=== PATIENT | male | born 1990 | race African-American/Black ===

== ENCOUNTER 2019-09-12 11:54 | Emergency (ER) | payer OTHER ==
[2019-09-12 12:49] LABS: ABS Basophils 0.1 10^3/ul (0-0.2); ABS Lymphocytes 2.3 10^3/ul (1.0-4.8); ABS Monocytes 1.5 10^3/ul (0-0.8); ABS Neutrophils 8.3 10^3/ul (1.5-7.7); Eosinophil % 0.3 %; Hematocrit 52 % (42-52); Hemoglobin 17.7 g/dL (14.0-18.0); Lymphocyte % 18.9 %; Mean Corpuscular HGB Conc 34 g/dL (31-36); Mean Corpuscular Hemoglobin 28 pg (27-31); Mean Corpuscular Volume 84 fL (80-94); Mean Platelet Volume 10.2 fL (7.4-10.4); Nucleated Red Blood Cells % 0.2; Platelet Count 125 10^3/uL (150-450); Red Blood Count 6.21 10^6 /uL (4.18-5.48); Red Cell Distribution Width 13 % (10-15); White Blood Count 12.3 10^3/uL (3.5-10.8)
--- NOTE | 2019-09-12 12:55 | ED ---
Complex/Multi-Sys Presentation - HPI Summary HPI Summary: Patient is a 29 y/o M presenting to [facility] with chief complaint of left-sided abdominal pain. Patient believed that he had the flu as he was experiencing fevers, diarrhea, productive cough, fatigue and chills. He states that his diarrhea has resolved but notes persistence of abdominal pain. Abdominal pain has been present for the past four days. Intermittent nausea is noted as well. Testicular pain is denied. He reports no similar prior episodes of Sx. Patient states that he was evaluated at [facility] and was diagnosed with PNA. However, no CXR was done and the patient was not prescribed antibiotics. Patient is a current smoker of 12 years. No PMHx of COPD but FMHx of COPD is noted. Patient denies alcohol and substance usage. Home medications and allergies are reviewed. - History Of Current Complaint Chief Complaint: EDAbdPain Time Seen by Provider: 09/12/19 12:33 Hx Obtained From: Patient Onset/Duration: Lasting Days, Still Present, Resolved - diarrhea Timing: Intermittent, Lasting: - nausea, Days - abd pain Severity Currently: Severe - 02/18 Location: Pain At: - abdomen, left Associated Signs And Symptoms: Positive: Cough, Nausea, Diarrhea, Abdominal Pain , Fever, Other - positive - fatigue, chills; negative - testicular pain - Allergies/Home Medications Allergies/Adverse Reactions: Allergies Allergy/AdvReac Type Severity Reaction Status Date / Time Penicillins Allergy Unknown Verified 09/12/19 12:35 Reaction Details PMH/Surg Hx/FS Hx/Imm Hx Respiratory History: Reports: Hx Asthma Denies: Hx Chronic Obstructive Pulmonary Disease (COPD) Sensory History: Denies: Hx Legally Blind, Hx Deafness Opthamlomology History: Denies: Hx Legally Blind EENT History: Denies: Hx Deafness Infectious Disease History: No Infectious Disease History: Denies: Traveled Outside the [place] in Last 30 Days - Family History Known Family History: Positive: Respiratory Disease - COPD Negative: Cardiac Disease, Hypertension, Diabetes - Social History Alcohol Use: None Substance Use Type: Reports: None Smoking Status (MU): Light Every Day Tobacco Smoker Review of Systems Positive: Fever - reported , Chills, Fatigue Positive: Cough Positive: Abdominal Pain, Diarrhea - since resolved , Nausea Negative: pain - testicular All Other Systems Reviewed And Are Negative: Yes Physical Exam - Summary Physical Exam Summary: VITAL SIGNS: Reviewed. GENERAL: Patient is a well-developed and nourished male who is lying comfortable in the stretcher. Patient is not in any acute respiratory distress. HEAD AND FACE: No signs of trauma. No ecchymosis, hematomas or skull depressions. No sinus tenderness. EYES: PERRLA, EOMI x 2, No injected conjunctiva, no nystagmus. EARS: Hearing grossly intact. Ear canals and tympanic membranes are within normal limits. MOUTH: Oropharynx within normal limits. NECK: Supple, trachea is midline, no adenopathy, no JVD, no carotid bruit, no c- spine tenderness, neck with full ROM. CHEST: Symmetric, no tenderness at palpation. LUNGS: Crackles bilaterally are noted. There is a slight wheeze. CVS: Regular rate and rhythm, S1 and S2 present, no murmurs or gallops appreciated. ABDOMEN: Soft, LLQ tenderness. No signs of distention. No rebound, no guarding, and no masses palpated. Bowel sounds are normal. No hernia appreciated. EXTREMITIES: FROM in all major joints, no edema, no cyanosis or clubbing. NEURO: Alert and oriented x 3. No acute neurological deficits. Speech is normal and follows commands. SKIN: Dry and warm. Triage Information Reviewed: Yes Vital Signs On Initial Exam: Initial Vitals Temp Pulse Resp BP Pulse Ox 99.3 F 96 16 140/93 94 09/12/19 11:54 09/12/19 11:54 09/12/19 11:54 09/12/19 11:54 09/12/19 11:54 Vital Signs Reviewed: Yes Procedures - Sedation Patient Received Moderate/Deep Sedation with Procedure: No Diagnostics - Vital Signs Vital Signs Temp Pulse Resp BP Pulse Ox 09/12/19 11:54 99.3 F 96 16 140/93 94 - Laboratory Result Diagrams: 09/12/19 12:34 09/12/19 12:34 Lab Statement: Any lab studies that have been ordered have been reviewed, and results considered in the medical decision making process. - Radiology cxr Radiology Interpretation Completed By: Radiologist Summary of Radiographic Findings: IMPRESSION: Right lower lobe infiltrate versus atelectasis. THIS REPORT WAS REVIEWED BY ED PHYSICIAN. CXR Radiology Interpretation Completed By: Radiologist Summary of Radiographic Findings: IMPRESSION: Right lower lobe infiltrate versus atelectasis. THIS REPORT WAS REVIEWED BY ED PHYSICIAN. ABDOMEN X-RAY Radiology Interpretation Completed By: Radiologist Summary of Radiographic Findings: IMPRESSION: Nonobstructive bowel gas pattern. THIS REPORT WAS REVIEWED BY ED PHYSICIAN. - CT CT ABD/PEL CT Interpretation Completed By: Radiologist Summary of CT Findings: IMPRESSION: NO CLEAR SOURCE OF ABDOMINAL PAIN. THIS REPORT WAS REVIEWED BY ED PHYSICIAN. Complex Multi-Symp Course/Dx Assessment/Plan: Patient is a 29 y/o M presenting to [facility] with chief complaint of left-sided abdominal pain. Patient believed that he had the flu as he was experiencing fevers, diarrhea, productive cough, fatigue and chills. He states that his diarrhea has resolved but notes persistence of abdominal pain. Abdominal pain has been present for the past four days. Intermittent nausea is noted as well. Testicular pain is denied. He reports no similar prior episodes of Sx. Patient states that he was evaluated at [facility] and was diagnosed with PNA. However, no CXR was done and the patient was not prescribed antibiotics. Patient is a current smoker of 12 years. No PMHx of COPD but FMHx of COPD is noted. Patient denies alcohol and substance usage. In the ED course the patient was placed in a athletic monitor, IV access was obtained, IV fluids started. Blood test w/o a significant abnormality except for WBCs of 12.3, absolute neutrophils of 8.3, sodium 133, chloride 100, glucose 121, CRP of 58.9. Urinalysis is negative for UTI. Chest x-ray impression: Right lower lobe infiltrate. Abdominal x-ray impression: non obstructive bowel gas pattern. The patient continued to have mild abdominal pain and a abdominal and pelvic CT was ordered to R/O diverticulitis. Abdominopelvic CT impression: No clear source of abdominal pain. In the course the patient was given azithromycin for pneumonia. After hydration and antibiotics the patient reports symptoms have improved. Therefore, he will be discharged home with follow-up with PCP. I discussed all the findings and test results with the patient. Patient was instructed to return to the emergency room immediately if any of the symptoms return worsens. Plan of care was discussed with the patient and understands and agrees. All questions were answered at patient satisfaction. There were no further complaints or concerns. Lung exam before discharge: CTA B/L. Good air exchange. No wheezing or crackles heard. CVS: S1 and S2 present. No murmurs appreciated. Patient is alert and oriented x 3. Patient is hemodynamically stable. Patient will be discharged home with follow up PCP in the next 2-3 days - Diagnoses Provider Diagnoses: PNA (pneumonia) Discharge ED - Sign-Out/Discharge Documenting (check all that apply): Patient Departure - discharge - Discharge Plan Condition: Stable Disposition: HOME Prescriptions: Azithromycin TAB* [Zithromax TAB (Z-ANDRAE) 250 mg #6 tabs] 250 mg PO DAILY #4 tab Patient Education Materials: Pneumonia (ED) Referrals: [facility] [Outside] - 3 Days Additional Instructions: PLEASE RETURN TO ED FOR ANY NEW OR CONCERNING SYMPTOMS. PLEASE FOLLOW UP WITH YOUR PRIMARY CARE PHYSICIAN WITHIN THREE DAYS. - Billing Disposition and Condition Condition: STABLE Disposition: Home - Attestation Statements Document Initiated by Antoinette: Yes Documenting Scribe: NNAMDI OSORIO Provider For Whom Antoinette is Documenting (Include Credential): GABRIELLA PALACIO MD Scribe Attestation: NNAMDI Ring, scribed for GABRIELLA PALACIO MD on 09/12/19 at 1853. Scribe Documentation Reviewed: Yes Provider Attestation: The documentation as recorded by the NNAMDI almonte accurately reflects the service I personally performed and the decisions made by , GABRIELLA PALACIO MD Status of Scribe Document: Viewed
[2019-09-12 13:04] LABS: ALT 48 U/L (7-52); AST 38 U/L (13-39); Albumin 4.3 g/dL (3.2-5.2); Albumin/Globulin Ratio 1.3 (1-3); Alkaline Phosphatase 74 U/L (34-104); Anion Gap 9 mmol/L (2-11); BUN/Creatinine Ratio 19.5 (8-20); Blood Urea Nitrogen 22 mg/dL (6-24); CO2 Carbon Dioxide 24 mmol/L (22-32); Calcium 8.7 mg/dL (8.6-10.3); Chloride 100 mmol/L (101-111); EGFR African American 92.8 (>60); EGFR Non-African American 76.7 (>60); Globulin 3.3 g/dL (2-4); Glucose 121 mg/dL (70-100); Potassium 3.7 mmol/L (3.5-5.0); Sodium 133 mmol/L (135-145); Total Protein 7.6 g/dL (6.4-8.9)
[2019-09-12] MEDS ORDERED: Iohexol 300* (CONTRAST) 10 ML SDV IV ONE (13:38)
[2019-09-12] MEDS ORDERED: Azithromycin 500 mg/250 ml NS 500 MG/250 ML BAG IVPB ONE (15:26)
[2019-09-12 16:32] VITALS: BP 135/87
== END 2019-09-12 16:32 | disposition home or self-care (01) ==
LOC: ED 11:54
DX: J18.9 Pneumonia, unspecified organism (principal); J45.909 Unspecified asthma, uncomplicated; F17.200 Nicotine dependence, unspecified, uncomplicated; Z88.0 Allergy status to penicillin
CPT/HCPCS: 36415; 71045; 74019; 74177; 80053; 83605; 83690; 85025; 86140; 96374; 99283; J0456; Q9967